=== PATIENT | male | born 1970 | race Native Hawaiian/Other Pacific Islander ===

== ENCOUNTER 2018-05-02 01:36 | Emergency (ER) | payer OTHER ==
[~2018-05-02] VITALS: Ht 175.3 cm; Wt 89.8 kg
[2018-05-02 02:34] LABS: PLATELET COUNT 231 K/uL (142-355)
[2018-05-02 02:43] LABS: POTASSIUM 3.3 mmol/L (3.6-5.2)
[2018-05-02 03:52] VITALS: BP 108/73; TEMP 97.7
[2018-05-02] MEDS ORDERED: ACID REDUCER20.6 MG PO (08:53)
[2018-05-02] MEDS ORDERED: RISP0.5T2 PO (08:54)
[2018-05-02] MEDS ORDERED: DIVA250T2 PO (08:55)
[2018-05-02] MEDS ORDERED: GLIP10TA55 PO (08:58)
[2018-05-02] MEDS ORDERED: HYDR25CA25 PO (08:59)
[2018-05-02] MEDS ORDERED: QUET100T2 PO (09:02)
[2018-05-02] MEDS ORDERED: RIVASTIGMINE3 MG PO (09:03)
[2018-05-02] MEDS ORDERED: TRAZODONE HYDRO50 MG PO (09:04)
[2018-05-02] MEDS ORDERED: HALO5INJ3 IM (09:05)
[2018-05-02] MEDS ORDERED: BENZ1TAB43 PO (09:07)
[2018-05-02] MEDS ORDERED: NEUDEXTA PO (09:12)
== END 2018-05-02 03:54 | disposition other institution (70) ==
LOC: ED 01:36
PROVIDERS: Family Medicine
DX: R46.89 Other symptoms and signs involving appearance and behavior (principal); F20.89 Other schizophrenia; Z04.6 Encounter for general psychiatric examination, requested by authority
CPT/HCPCS: 36415; 80053; 81000; 85027; 93005; 99285

== ENCOUNTER 2022-04-18 23:24 | Emergency (ER) | payer OTHER ==
[~2022-04-18] VITALS: Ht 175.3 cm; Wt 105.2 kg
[~2022-04-18 23:24] MED LIST: ACID REDUCER20.6 MG PO; BENZ1TAB43 PO; BUSP5TAB2 PO; CHOL100034 PO; DIVA250T2 PO; ESCI10TA PO; GLIP10TA55 PO; HALO5INJ3 IM; HYDR25CA25 PO; MULTTAB52 PO; NEUDEXTA PO; QUET100T2 PO; QUET300T PO; RISP0.5T2 PO; RIVASTIGMINE3 MG PO; TRAZODONE HYDRO50 MG PO
[2022-04-18 23:35] VITALS: TEMP 98.8
[2022-04-19 00:12] LABS: PLATELET COUNT 176 K/uL (142-355)
[2022-04-19 00:19] LABS: POTASSIUM 3.3 mmol/L (3.6-5.2)
[2022-04-19 02:30] VITALS: BP 148/95
[2022-04-19] MEDS ORDERED: D3-10001000 UNIT PO (08:36)
[2022-04-19] MEDS ORDERED: ESCI10TA PO (08:38)
[2022-04-19] MEDS ORDERED: QUETIAPINE200 MG PO (08:39)
[2022-04-19] MEDS ORDERED: TAB-A-VIT1 PO (08:40)
[2022-04-19] MEDS ORDERED: QUETIAPINE300 MG PO (08:40)
[2022-04-19] MEDS ORDERED: GLIP10TA55 PO (08:42)
[2022-04-19] MEDS ORDERED: CLONAZEP PO (08:42)
[2022-04-19] MEDS ORDERED: BUSP15TAB2 PO (08:43)
[2022-04-19] MEDS ORDERED: DIVA500T2 PO (08:44)
[2022-04-19] MEDS ORDERED: TYLENOL325 MG PO ×2 (08:45→08:46)
== END 2022-04-19 02:30 | disposition still patient (30) ==
LOC: ED 23:24
PROVIDERS: Emergency Medicine
DX: R46.89 Other symptoms and signs involving appearance and behavior (principal); F20.89 Other schizophrenia; Z11.52 Encounter for screening for COVID-19; Z04.6 Encounter for general psychiatric examination, requested by authority
CPT/HCPCS: 36415; 80053; 81002; 85027; 87635; 93005; 99283; U0003